=== PATIENT | male | born 2000 | race Two or more races ===

== ENCOUNTER 2024-04-06 16:24 | Emergency (ER) | payer MEDICAID ==
[~2024-04-06] VITALS: Ht 170.2 cm; Wt 58.2 kg
--- NOTE | 2024-04-06 17:39 | DVH ---
CLINICAL INDICATION: RIGHT SHOULDER PAIN TECHNIQUE: 3-view XY R SHOULDER 2+ VIEW XRAY Comparison: None FINDINGS/IMPRESSION: : Right shoulder dislocation anteriorly and inferiorly . No fracture
[2024-04-06] MEDS: ONDANSETRON HCL 4 MG/2 ML VIAL IV ONE (18:51)
[2024-04-06] MEDS: MORPHINE SULFATE 4 MG/ML SYR/VIAL IV ONE (18:52)
[2024-04-06] MEDS: PROPOFOL 10 MG/ML 20 ML IV ONE (20:22)
--- NOTE | 2024-04-06 20:45 | DVH ---
CLINICAL INDICATION: POST REDUCTION TECHNIQUE: Single view of the right shoulder. Comparison: XY R SHOULDER 2+ VIEW XRAY on DOS: 04/06/24 FINDINGS/IMPRESSION: Successful reduction. Alignment is grossly anatomic. No evidence of fracture or dislocation
[2024-04-06 21:00] VITALS: BP 145/97; PULSE 62; RESP 13; TEMP 98.1; O2SAT 100
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
== END 2024-04-06 21:23 | disposition home or self-care (01) ==
LOC: ER 16:24
DX: M24.411 Recurrent dislocation, right shoulder (principal)
CPT/HCPCS: 23650; 73020; 73030; 96374; 96375; 99285; J2270; J2405; J2704

== ENCOUNTER 2024-06-07 02:54 | Emergency (ER) | payer OTHER ==
[~2024-06-07] VITALS: Ht 167.6 cm; Wt 56.4 kg
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
--- NOTE | 2024-06-07 04:15 | DVH ---
CLINICAL INDICATION: right shoulder pain TECHNIQUE: XY R SHOULDER 2+ VIEW XRAY Comparison: XY R SHOULDER 1V XRAY on DOS: 04/06/24, XY R SHOULDER 2+ VIEW XRAY on DOS: 04/06/24 FINDINGS/IMPRESSION: : Anterior and inferior subluxation of the humeral head with respect to the glenoid process of the scap serge is consistent with anterior shoulder dislocation. No evidence of fracture. The ribs and visualized portions of the right lung are normal in appearance. Soft tissues are unremarkable.
[2024-06-07] MEDS: PROPOFOL 10 MG/ML 20 ML IV ONE (04:20)
[2024-06-07] MEDS: KETAMINE 50mg/ML 10ml Vial (500mg/10ml) IV ONE (04:21)
[2024-06-07 04:40] VITALS: TEMP 98
--- NOTE | 2024-06-07 05:34 | DVH ---
CLINICAL INDICATION: post reduction TECHNIQUE: XY R SHOULDER 2+ VIEW XRAY Comparison: XY R SHOULDER 2+ VIEW XRAY on DOS: 06/07/24, XY R SHOULDER 1V XRAY on DOS: 04/06/24, XY R S HOULDER 2+ VIEW XRAY on DOS: 04/06/24 FINDINGS/IMPRESSION: : Successful interval reduction of right anterior shoulder dislocation. No other significant interval c hange.
[2024-06-07 07:35] VITALS: BP 132/71; PULSE 68; RESP 12; O2SAT 99
== END 2024-06-07 07:40 | disposition home or self-care (01) ==
LOC: EDUNIT# 02:54 → EDBD 02:54 → ER 02:54
DX: S43.014A Anterior dislocation of right humerus, initial encounter (principal); W18.39XA Other fall on same level, initial encounter; Y93.89 Activity, other specified; Y92.89 Other specified places as the place of occurrence of the external cause; Y99.8 Other external cause status
CPT/HCPCS: 23650; 73030; 99152; 99153; 99285; J2704

== ENCOUNTER 2024-06-25 07:09 | Emergency (ER) | payer OTHER ==
[~2024-06-25] VITALS: Ht 170.2 cm; Wt 56.0 kg
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
[2024-06-25] MEDS: SODIUM CHLORIDE 0.9% 1,000 ML IV ONE ×2 (07:42→09:45)
[2024-06-25] MEDS: ONDANSETRON HCL 4 MG/2 ML VIAL IV ONE (07:42)
[2024-06-25] MEDS: MORPHINE SULFATE 4 MG/ML SYR/VIAL IV ONE (07:43)
[2024-06-25 08:00] VITALS: PULSE 76; RESP 19; O2SAT 99
--- NOTE | 2024-06-25 08:13 | DVH ---
EXAM: XY R SHOULDER 2+ VIEW XRAY HISTORY: shoulder injury COMPARISON: XY R SHOULDER 2+ VIEW XRAY on DOS: 06/07/24 TECHNIQUE: Four views of the right shoulder were performed. FINDINGS: Anterior inferior displacement of the humeral head relative to the glenoid. No acute fracture. IMPRESSION: 1. Anterior glenohumeral joint dislocation.
[2024-06-25] MEDS: KETOROLAC TROMETH 30 MG/ML 1ML VIAL IV ONE (09:14)
[2024-06-25] MEDS: PROPOFOL 10 MG/ML 20 ML IV ONE (09:43)
--- NOTE | 2024-06-25 10:20 | DVH ---
XY R SHOULDER 1V XRAY INDICATION: RIGHT SHOULDER DISLOCATION TECHNICAL DATA: 1 views were obtained of the right shoulder. COMPARISON: XY R SHOULDER 2+ VIEW XRAY on DOS: 06/25/24, XY R SHOULDER 2+ VIEW XRAY on DOS: 06/07/24, X Y R SHOULDER 2+ VIEW XRAY on DOS: 06/07/24 FINDINGS: There is no fracture or focal bone abnormality. The glenohumeral joint is normally maintained. The ac romioclavicular joint appears normal. The humeral head is not high riding. Adjacent soft tissues are within normal limits. IMPRESSION: Interval reduction of the previously noted anterior shoulder dislocation. No acute fracture or dislocation of the right shoulder.
[2024-06-25 11:46] VITALS: BP 116/57; PULSE 53; RESP 16; TEMP 97.3; O2SAT 98
== END 2024-06-25 12:00 | disposition home or self-care (01) ==
LOC: ER 07:09 → EDBD 07:09 → ER 12:00
DX: S43.014A Anterior dislocation of right humerus, initial encounter (principal); Z59.00 Homelessness unspecified; X58.XXXA Exposure to other specified factors, initial encounter; Y93.89 Activity, other specified; Y92.89 Other specified places as the place of occurrence of the external cause; Y99.8 Other external cause status
CPT/HCPCS: 23650; 73020; 73030; 96361; 96374; 96375; 99152; 99153; 99285; J1885; J2270; J2405; J2704; J7030